=== PATIENT | female | born 1990 | race Caucasian/White ===

== ENCOUNTER 2019-11-20 07:52 | Emergency (ER) | payer OTHER, SELFPAY ==
[2019-11-20 07:56] VITALS: BP 142/78; PULSE 96; RESP 16; TEMP 36.8; O2SAT 98; BMI 34.0
--- NOTE | 2019-11-20 08:14 | DI.US.S_ITS ---
PROCEDURE: US PELVIC COMPLETE INDICATIONS: pain +preg TECHNIQUE: Real-time scanning was performed of the pelvic organs, with image documentation. Additional endovaginal scanning was necessary due to incomplete visualization of the adnexal and endometrial structures by transabdominal scanning. COMPARISON: None. FINDINGS: Transabdominal scanning: Limited scanning through the kidneys shows no hydronephrosis. A small amount of free fluid can be seen within the posterior pelvic cul-de-sac. Endovaginal scanning: Uterus: Uterus is normal in size at 8.1 x 4.5 x 5.3 cm. The endometrium measures 13 mm in combined thickness. Within the endometrial stripe, there is a small amount of free fluid seen, new without a gestational sac observed. Ovaries: The right ovary measures 2.4 x 1.4 x 1.3 cm. The left ovary measures 4.7 x 2.6 x 2.6 cm. The ovaries have a normal sonographic appearance, with a likely corpus luteum seen involving the left ovary that measures 3 centimeters. No adnexal masses are seen. IMPRESSION: An intrauterine is not confirmed. There is a small amount of fluid seen along the endometrial stripe. A small amount of free pelvic fluid is also seen. The differential diagnosis includes a spontaneous miscarriage in progress as well as (less likely) ectopic . Very early is also possible-please correlate with menstrual dating. Likely left ovarian corpus luteum. Close clinical followup, with serial beta-hCG and serial ultrasound are recommended, as clinically appropriate. Dictated by: Jam Armenta M.D. on 11/20/2019 at 8:57 Approved by: Jam Armenta M.D. on 11/20/2019 at 9:01
--- NOTE | 2019-11-20 08:18 | ED.FEMALEGU ---
HPI - Female Genitourinary General Chief complaint: Abdominal Pain Stated complaint: lower abd pain/+preg test x2days Time Seen by Provider: 11/20/19 08:06 Source: patient Mode of arrival: Ambulatory Limitations: no limitations History of Present Illness HPI Narrative: Patient is a 29-year-old female who presents with lower abdominal pain and cramping. She took a test at home and it is positive her last menstrual period was October 18. She has no vaginal bleeding. This was not a planned . She denies feeling nauseated or fall but it. No painful or frequent urination. His his pain all across her lower abdomen MD Complaint: pelvic pain Related Data Home Medications Medication Instructions Recorded Confirmed [NUVORING] #0 06/27/11 Previous Rx's Medication Instructions Recorded amoxicillin-pot clavulanate 875 mg PO BID #14 tab 06/29/16 [Augmentin] fluticasone propionate 0 INTRANASAL BID #16 gm 06/29/16 hydrocodone-acetaminophen [[place]] 1 tab PO Q6H PRN #6 tab 11/20/19 Allergies Allergy/AdvReac Type Severity Reaction Status Date / Time oxycodone [OXYCODONE] Allergy Unknown SKIN RASH Unverified 07/05/17 12:09 LATEX Allergy Intermediate RASH/ SOB Uncoded 07/05/17 12:09 Review of Systems Review of Systems Narrative: GENERAL: Denies chills, fatigue, malaise, fever, sweats, travel HEENT: Denies sinus pain, ear pain, sore throat, difficulty swallowing, neck pain RESPIRATORY: Denies dyspnea, cough, wheezing, hemoptysis, sputum. CARDIOVASCULAR: Denies chest pain, palpitations, orthopnea, edema GASTROINTESTINAL: See HPI Denies nausea, vomiting, abdominal pain, diarrhea, constipation, melena. : See HPI MUSCULOSKELETAL: Denies weakness, joint pain, or bony pain SKIN: No rash, no erythema, no pruritus NEUROLOGIC: Denies weakness, dizziness, headache, numbness, change in speech, confusion PSYCHIATRIC: No concerning psychosocial issues. 12 point review of systems is negative except for those stated above and HPI Patient History alcohol intake frequency: 0-2 drinks per day Substance Use Type: marijuana Exam Initial Vital Signs Initial Vital Signs: Vital Signs Temperature 98.2 F 11/20/19 07:56 Pulse Rate 96 H 11/20/19 07:56 Respiratory Rate 16 11/20/19 07:56 Blood Pressure 142/78 H 11/20/19 07:56 Pulse Oximetry 98 11/20/19 07:56 GENERAL: Well-appearing, well-nourished and in no acute distress. HEENT: Head atraumatic,EOMI, pupils reactive, face symmetric, moist mucous membranes CARDIOVASCULAR: Regular rate and rhythm without murmurs, rubs or gallops. RESPIRATORY: Breath sounds equal bilaterally, no wheezes rales or rhonchi. ABDOMEN: Soft, lower abdominal nontender. Normoactive bowel sounds all 4 quadrants. No guarding or rebound. PELVIC: External genitalia is normal, no vaginal bleeding, no vaginal discharge, no odor, cervical os is closed, no adnexal tenderness, she is tender midline EXTREMITIES: Normal range of motion, no clubbing or edema. Neurovascularly intact NEUROLOGICAL: Alert and oriented x4.Normal gait and speech. SKIN: Warm, dry, no laceration, no petechiae, no rashes or lesions. Course Orders Ordered: ED Orders 11/20/19 08:14 US pelvic complete Stat 11/20/19 08:30 Complete Blood Count AUTO DIFF Stat Comprehensive Metabolic Panel Stat HCG Quantitative /Beta subunit Stat Discontinued Medications Acetaminophen (Tylenol) 975 mg PO NOW ONE Stop: 11/20/19 08:15 Last Admin: 11/20/19 08:59 Dose: 975 mg Documented by: TREY Consultations Consultation #1: OB- Travis follow up in clinic in 2 days Time: 10:22 Vital Signs Vital signs: Vital Signs - 8 hr 11/20/19 07:56 11/20/19 10:33 Temperature 98.2 F Pulse Rate 96 H 83 Respiratory Rate 16 Blood Pressure 142/78 H 121/76 Pulse Oximetry 98 6 L MDM - Female Genitourinary Lab Data Attestation: I reviewed the patient's lab results. Result diagrams: 11/20/19 08:30 11/20/19 08:30 Labs: Lab Results 11/20/19 11/20/19 Range/Units 08:30 08:30 WBC 10.1 (4.5-11.0) X10^3/uL RBC 4.79 (4.0-5.2) X10^6/uL Hgb 12.0 (12.0-16.0) g/dL Hct 37.0 (36-46) % MCV 77.4 L (80-100) fL MCH 25.0 L (26-34) PG MCHC 32.3 (30-36) % RDW 15.6 H (11.6-14.8) % Plt Count 349 (150-400) X10^3/uL Neut % (Auto) 73.6 (50-75) % Lymph % (Auto) 19.9 L (25-40) % [place] % (Auto) 4.8 (3-14) % Eos % (Auto) 1.3 L (2-4) % Baso % (Auto) 0.4 (0-2) % Neut # (Auto) 7500 H (2066-3875) /uL Lymph # (Auto) 2000 (1450-1793) /uL [place] # (Auto) 500 (0-900) /uL Eos # (Auto) 100 (0-450) /uL Baso # (Auto) 0 (0-100) /uL Sodium 137 (137-145) mmol/L Potassium 4.1 (3.4-5.1) mmol/L Chloride 106 (98-107) mmol/L Carbon Dioxide 22 (22-32) mmol/L BUN 12 (7-17) mg/dL Creatinine 0.61 (0.52-1.04) mg/dL Estimated GFR > 60.0 (>60) mL/min BUN/Creatinine Ratio 19.7 (6-22) Glucose 115 H (70-100) mg/dL Calcium 9.3 (8.4-10.2) mg/dL Total Bilirubin 0.4 (0.2-1.3) mg/dL AST 23 (14-36) IU/L ALT 22 (<35) IU/L Alkaline Phosphatase 93 (38-126) U/L Total Protein 8.1 (6.3-8.2) g/dL Albumin 4.4 (3.5-5.0) g/dL Globulin 3.7 (1.7-4.1) g/dL Albumin/Globulin Ratio 1.2 (1.0-2.8) HCG, Quant 346.6 mIU/mL Point of Care Testing Test Results Positive Urine Dip Bedside Urine Glucose Negative Bedside Urine Bilirubin - Negative Bedside Urine Ketone - Negative Urine Specific [place] 1.015 Bedside Urine Occult Blood - Negative Bedside Urine pH 6.0 Bedside Urine Protein - Negative Bedside Urine Urobilinogen - Negative Bedside Urine Nitrite - Negative Bedside Urine Leukocytes - Negative Esterase Imaging Data US - OB: Radiologist's Impression: PROCEDURE: US PELVIC COMPLETE INDICATIONS: pain +preg TECHNIQUE: Real-time scanning was performed of the pelvic organs, with image documentation. Additional endovaginal scanning was necessary due to incomplete visualization of the adnexal and endometrial structures by transabdominal scanning. COMPARISON: None. FINDINGS: Transabdominal scanning: Limited scanning through the kidneys shows no hydronephrosis. A small amount of free fluid can be seen within the posterior pelvic cul-de-sac. Endovaginal scanning: Uterus: Uterus is normal in size at 8.1 x 4.5 x 5.3 cm. The endometrium measures 13 mm in combined thickness. Within the endometrial stripe, there is a small amount of free fluid seen, new without a gestational sac observed. Ovaries: The right ovary measures 2.4 x 1.4 x 1.3 cm. The left ovary measures 4.7 x 2.6 x 2.6 cm. The ovaries have a normal sonographic appearance, with a likely corpus luteum seen involving the left ovary that measures 3 centimeters. No adnexal masses are seen. IMPRESSION: An intrauterine is not confirmed. There is a small amount of fluid seen along the endometrial stripe. A small amount of free pelvic fluid is also seen. The differential diagnosis includes a spontaneous miscarriage in progress as well as (less likely) ectopic . Very early is also possible-please correlate with menstrual dating. Likely left ovarian corpus luteum. Close clinical followup, with serial beta-hCG and serial ultrasound are recommended, as clinically appropriate. Dictated by: Jam Armenta M.D. on 11/20/2019 at 8:57 Approved by: Jam Armenta M.D. on 11/20/2019 at 9:01 MDM Narrative Medical decision making narrative: I have suspicion that patient is experiencing miscarriage with extremely low HCG. IUP is not confirmed by ultrasound I have low suspicion for ectopic based on exam and hCG. Patient has no PCP and no OB. I have called OB cotton opener who recommends follow-up in clinic in 2 days. I discussed all findings with the patient and spouse, Education has been performed regarding treatment plan, diagnosis, warning signs and symptoms and all concerns have been addressed. Verbally agree with and understood all of the above. Discharge Plan Departure Patient Disposition: Home Clinical Impression: Miscarriage, threatened, early Discharge Date/Time: 11/20/19 10:34 Instructions: Threatened Miscarriage Activity Restrictions/Additional Instructions: RQI=162.6 *You have been diagnosed with threatened miscarriage *What to do: It is highly suspected that you may be experiencing a miscarriage however ED needs have your blood rechecked in 2 days. *Continue to take medications as directed [place] 1 tab every 6 hours if needed for severe pain Tylenol 650 mg every 4-6 hours if needed for ojex-is-[id number] pain *Follow up with your primary care provider in 2, call office today to schedule follow-up appointment let them know you were seen in the ED *Return to ER if you should have increased vaginal bleeding, severe pain or any new, worsening or concerning symptoms CONTROLLED SUBSTANCE DISCHARGE (Narcotoic/benzodiazepine/Flexeril/Phenergan) 1. You have been prescribed narcotic medications, it does have acetaminophen/Tylenol/paracetamol in it so do not take extra Tylenol or Tylenol containing products TRAMADOL DOES NOT CONTAIN TYLENOL 2. Please understand that we cannot provide further refills of narcotics, benzodiazepines or controlled substances through the ED and her pain management will need to be through your provider. 3. While on these medications you cannot drive or operate heavy machinery. 4. You cannot sign legal documents or perform any duties such as this. 5. As long as you're taking opiate pain medications he should also be taking a stool softener such as Colace, Dulcolax, MiraLAX or prune juice, to help avoid constipation. Prescriptions: New hydrocodone-acetaminophen [[place]] 5-325 mg tablet 1 tab PO Q6H PRN (Reason: pain) Qty: 6 RF: 0 No Action [NUVORING] Qty: 0 RF: 0 fluticasone propionate 16 GM spray,suspension 0 Intranasal BID Qty: 16 RF: 0 amoxicillin-pot clavulanate [Augmentin] 875 MG/125 MG tablet 875 mg PO BID Qty: 14 RF: 0 Referrals: Ashwini Robles CNM [[facility] [employer] [facility]] -
[2019-11-20 08:45] LABS: Add Manual Diff / Slide Review NO; Basophils Absolute Auto 0 /uL (0-100); Basophils Percent Auto 0.4 % (0-2); Eosinophils Absolute Auto 100 /uL (0-450); Eosinophils Percent Auto 1.3 % (2-4); Lymphocytes Absolute Auto 2000 /uL (1100-4500); Lymphocytes Percent Auto 19.9 % (25-40); Mean Corpuscular HGB Conc 32.3 % (30-36); Mean Corpuscular Volume 77.4 fL (80-100); Monocytes Absolute Auto 500 /uL (0-900); Monocytes Percent Auto 4.8 % (3-14); Neutrophils Absolute Auto 7500 /uL (1500-7000); Neutrophils Percent Auto 73.6 % (50-75); Platelet Count 349 X10^3/uL (150-400); Red Blood Cell Count 4.79 X10^6/uL (4.0-5.2); Red Cell Distribution Width 15.6 % (11.6-14.8); White Blood Cell Count 10.1 X10^3/uL (4.5-11.0)
[2019-11-20 08:56] LABS: Alanine Aminotransferase 22 IU/L (<35); Albumin 4.4 g/dL (3.5-5.0); Albumin Globulin Ratio 1.2 (1.0-2.8); Alkaline Phosphatase 93 U/L (38-126); Aspartate Aminotransferase 23 IU/L (14-36); BUN Creatinine Ratio 19.7 (6-22); Bilirubin Total 0.4 mg/dL (0.2-1.3); Blood Urea Nitrogen 12 mg/dL (7-17); Calcium 9.3 mg/dL (8.4-10.2); Carbon Dioxide 22 mmol/L (22-32); Chloride 106 mmol/L (98-107); Estimated Glomerular Filt Rate > 60.0 mL/min (>60); Globulin 3.7 g/dL (1.7-4.1); Glucose 115 mg/dL (70-100); HEMOLYSIS < 15 (0-50); Potassium 4.1 mmol/L (3.4-5.1); Sodium 137 mmol/L (137-145); Total Protein 8.1 g/dL (6.3-8.2)
[2019-11-20] MEDS: ACETAMINOPHEN 325 MG TABLET 975 MG PO (08:59)
[2019-11-20 09:11] LABS: HCG Quantitative /Beta subunit 346.6 mIU/mL
[2019-11-20 10:33] VITALS: BP 121/76; PULSE 83; O2SAT 6
== END 2019-11-20 10:34 | disposition home or self-care (01) ==
PROVIDERS: Emergency Provider Emergency Medicine
DX: O20.0 Threatened abortion (principal)
CPT/HCPCS: 76856; 80053; 81003; 81025; 84702; 85025; 99284

== ENCOUNTER → 2019-11-22 10:45 | Outpatient (CLI) | payer OTHER, SELFPAY ==
[2019-11-22 12:46] LABS: HCG Quantitative /Beta subunit 1035.5 mIU/mL
== END ==
PROVIDERS: Referring Provider Specialist; Visit Provider Specialist
DX: O20.0 Threatened abortion (principal); O26.899 Other specified pregnancy related conditions, unspecified trimester; R10.9 Unspecified abdominal pain
CPT/HCPCS: 36415; 84702

== ENCOUNTER → 2019-12-12 15:16 | Outpatient (CLI) | payer OTHER, SELFPAY ==
[2019-12-12 16:11] LABS: Add Manual Diff / Slide Review NO; Basophils Absolute Auto 0 /uL (0-100); Basophils Percent Auto 0.3 % (0-2); Eosinophils Absolute Auto 100 /uL (0-450); Eosinophils Percent Auto 0.8 % (2-4); Hematocrit 33.6 % (36-46); Hemoglobin 10.8 g/dL (12.0-16.0); Lymphocytes Absolute Auto 2900 /uL (1100-4500); Lymphocytes Percent Auto 20.2 % (25-40); Mean Corpuscular HGB Conc 32.2 % (30-36); Mean Corpuscular Hemoglobin 24.8 PG (26-34); Mean Corpuscular Volume 77.2 fL (80-100); Monocytes Absolute Auto 900 /uL (0-900); Neutrophils Absolute Auto 10300 /uL (1500-7000); Neutrophils Percent Auto 72.7 % (50-75); Platelet Count 339 X10^3/uL (150-400); Red Blood Cell Count 4.35 X10^6/uL (4.0-5.2); Red Cell Distribution Width 16.3 % (11.6-14.8); White Blood Cell Count 14.1 X10^3/uL (4.5-11.0)
[2019-12-12 16:26] LABS: Appearance Urine UA CLEAR; Bilirubin Urine UA NEGATIVE (NEGATIVE); Color Urine UA YELLOW; Glucose Urine UA NEGATIVE (Negative); Ketones Urine UA NEGATIVE (NEGATIVE); Leukocyte Esterase Urine UA NEGATIVE (NEGATIVE); Nitrite Urine UA NEGATIVE (Negative); Occult Blood Urine UA TRACE-LYSED (Negative); Protein Urine UA NEGATIVE (Negative); Urobilinogen Urine UA 0.2 E.U./dL (0.2)
[2019-12-12 17:40] LABS: Hepatitis B Surface Antigen NEGATIVE s/c (NEGATIVE); Rubella Antibody IgG 19.9 IU/mL (>15)
[2019-12-12 17:57] LABS: HIV 1 & 2 Ab/Ag 4th Gen Combo NEGATIVE (NEGATIVE); Hep C Virus Ab w/Reflex Quant NEGATIVE s/c (NEGATIVE)
[2019-12-13 05:11] LABS: RPR Screen Non Reactive (Non Reactive)
[2019-12-13 08:54] LABS: Varicella IgG Antibody 1591 index (Immune >165)
== END ==
PROVIDERS: PCP Specialist; Referring Provider Specialist; Visit Provider Specialist
DX: Z34.01 Encounter for supervision of normal first pregnancy, first trimester (principal)
CPT/HCPCS: 36415; 80055; 81003; 86787; 86803; 86850; 86900; 86901; 87086; 87389

== ENCOUNTER → 2020-01-10 14:54 | Outpatient (CLI) | payer OTHER, SELFPAY ==
[2020-01-10 16:47] LABS: Iron 38 ug/dL (37-170)
[2020-01-10 16:58] LABS: Percent Iron Saturation 8 % (15-50); Total Iron Binding Capacity 503 ug/dL (265-497)
[2020-01-10 17:23] LABS: Ferritin 17 ng/mL (6-137)
== END ==
PROVIDERS: PCP Specialist; Referring Provider Specialist; Visit Provider Specialist
DX: D50.9 Iron deficiency anemia, unspecified (principal)
CPT/HCPCS: 36415; 82728; 83540; 83550

== ENCOUNTER → 2020-02-14 17:20 | Outpatient (CLI) | payer OTHER, SELFPAY ==
[2020-02-17 19:36] LABS: AFP, Serum 35.1 ng/mL (.); Estriol, Free 0.84 ng/mL (.); Inhibin A, Dimeric 148.81 pg/mL (.); Inhibin A, MoM 1.06 (.); Maternal Ethnicity Caucasian (.); Maternal Weight 191 lbs (.); Number of Fetuses No (.); OSBR Risk 1 IN 9231 (.); Results Report (.); Test Results *Screen Negative* (.); hCG, MoM 0.69 (.); hCG, Serum 19803 mIU/mL (.)
== END ==
PROVIDERS: PCP Registered Nurse; Referring Provider Specialist; Visit Provider Specialist
DX: Z34.02 Encounter for supervision of normal first pregnancy, second trimester (principal); Z3A.16 16 weeks gestation of pregnancy
CPT/HCPCS: 36415; 82105; 82677; 84702; 86336

== ENCOUNTER → 2020-03-11 12:10 | Outpatient (CLI) | payer OTHER, SELFPAY ==
--- NOTE | 2020-03-11 12:11 | DI.US.S_ITS ---
PROCEDURE: US OB >= 14 WEEKS FETUS INDICATIONS: 20wk Anatomy Survey OUTSIDE/PRIOR DATING DATA: First dating scan (date and location): 12/12/2019 . Estimated date of delivery (KVNG) from first dating scan: 07/25/2020 . TECHNIQUE: Real-time scanning was performed of the fetus, with image documentation and biometric measurements. Endovaginal scanning: No COMPARISON: [facility], , OB >= 14 WEEKS FETUS, 02/14/2020, 17:13. FINDINGS: General: A single living intrauterine gestation is present. Presentation: Vertex. Placenta: Placental position is anterior , without previa. Amniotic fluid index: 17.4 cm, normal range is 5-24 cm. heart rate: 141 beats per minute. Maternal cervical canal: 3.7 cm long. Normal lower limit is 2.5 cm. biometrics: Biparietal diameter: 21 weeks Head circumference: 20 weeks 2 days Abdominal circumference: 22 weeks 4 days Femur length: 21 weeks 3 days Estimated gestational age from initial scan: 20 weeks 4 days Composite gestational age from present scan: 21 weeks 2 days Estimated weight and percentile: 450 g; 97th percentile Measurement variability for biometric dating: +/- 7 days from 14 weeks to 15 weeks 6 days gestation, +/- 10 days from 16 weeks to 21 weeks 6 days gestation, +/- 2 weeks from 22 weeks to 27 weeks 6 days gestation, +/- 3 weeks for 28 weeks gestation or later. weight reference: 4500 g or EFW >90/95% is considered macrosomia or large for gestational age. EFW <10% is small for gestational age. EFW 5% or less is considered intra-uterine growth restriction. Anatomic survey: Neuro: Ventricles are non-dilated at less than 10 mm. Cisterna magna is normal at 3-11 mm. Cerebellum is normal in size and morphology. Nuchal skin fold: Normal at less than 6 mm between 14-21 weeks gestational age. Face: Nose and lips, facial profile are normal. Spine: No evidence for spina bifida. Heart: 4-chambered heart is present, with normal ventricular outflow tracts. Diaphragm: Diaphragm is intact. Stomach: Left-sided stomach is present. Kidneys: No hydronephrosis. Normal is less than 5 mm in 2nd trimester, less than 7 mm in 3rd trimester. Cord: 3-vessel cord has orthotopic insertion. Bladder: Normal in size. Extremities: All 4 extremities identified. IMPRESSION: 1. Interval growth greater than expected with estimated weight 97th percentile. Follow-up recommended. 2. Normal anatomic survey. Dictated by: Dave Alcala [facility] Interpreted: Dewey Mcgraw MD on 03/12/2020 at 17:02 Approved by: Dewey Mcgraw M.D. on 03/12/2020 at 17:19
== END ==
PROVIDERS: PCP Registered Nurse; Referring Provider Specialist; Visit Provider Specialist
DX: Z36.89 Encounter for other specified antenatal screening (principal); Z3A.21 21 weeks gestation of pregnancy
CPT/HCPCS: 76811

== ENCOUNTER → 2020-04-02 12:02 | Outpatient (CLI) | payer OTHER, SELFPAY ==
[2020-04-02 14:34] LABS: Hemoglobin 10.3 g/dL (12.0-16.0)
[2020-04-02 14:48] LABS: GTT (PREG) 1 Hour PP 50gm Dose 178 mg/dL (76-139)
== END ==
PROVIDERS: PCP Registered Nurse; Referring Provider Specialist; Visit Provider Specialist
DX: Z34.02 Encounter for supervision of normal first pregnancy, second trimester (principal); Z33.1 Pregnant state, incidental
CPT/HCPCS: 36415; 82950; 85014; 85018

== ENCOUNTER → 2020-04-15 07:51 | Outpatient (CLI) | payer OTHER, SELFPAY ==
[2020-04-15 09:39] LABS: Glucose Fasting Gestational 90 mg/dL (76-95)
[2020-04-15 10:34] LABS: Glucose 1 Hour Gest 185 mg/dL (76-180)
[2020-04-15 11:09] LABS: Glucose Tol Interp,Gestational INTERPRETATION
[2020-04-15 11:16] LABS: Glucose 2 Hour Gest 194 mg/dL (76-155)
[2020-04-15 11:44] LABS: Glucose 3 Hour Gest 147 mg/dL (76-140)
== END ==
PROVIDERS: PCP Registered Nurse; Referring Provider Specialist; Visit Provider Specialist
DX: O99.810 Abnormal glucose complicating pregnancy (principal)
CPT/HCPCS: 36415; 82951; 82952

== ENCOUNTER → 2020-05-07 11:30 | Oncology outpatient (ONC) | payer OTHER, SELFPAY ==
[2020-02-12] MEDS: IRON SUCROSE 100 MG in SODIUM CHLORIDE 0.9% 100 ML 210 ML IV (10:47)
[2020-02-12 11:14] VITALS: BP 117/68; PULSE 75; RESP 16; TEMP 37.1; O2SAT 98
[2020-02-17 14:49] VITALS: BP 128/65; PULSE 88; RESP 16; TEMP 37.3; O2SAT 96
[2020-02-17] MEDS: IRON SUCROSE 200 MG in SODIUM CHLORIDE 0.9% 100 ML 220 ML IV (14:50)
[2020-02-24 15:01] VITALS: BP 118/63; PULSE 78; RESP 16; TEMP 37.2; O2SAT 96
[2020-02-24] MEDS: IRON SUCROSE 200 MG in SODIUM CHLORIDE 0.9% 100 ML 220 ML IV (15:02)
[2020-04-30 11:46] VITALS: BP 128/77; PULSE 86; RESP 18; TEMP 37; O2SAT 100
[2020-04-30] MEDS: IRON SUCROSE 100 MG in SODIUM CHLORIDE 0.9% 100 ML 210 ML IV (11:54)
[2020-05-05] MEDS: IRON SUCROSE 200 MG in SODIUM CHLORIDE 0.9% 100 ML 220 ML IV (11:44)
[2020-05-05 12:12] VITALS: BP 136/74; PULSE 83; RESP 18; TEMP 36.5; O2SAT 98
[2020-05-07] MEDS: IRON SUCROSE 200 MG in SODIUM CHLORIDE 0.9% 100 ML 220 ML IV (11:57)
== END ==
PROVIDERS: PCP Specialist; Referring Provider Specialist; Visit Provider Specialist
DX: O99.012 Anemia complicating pregnancy, second trimester (principal); D64.9 Anemia, unspecified; Z3A.27 27 weeks gestation of pregnancy
CPT/HCPCS: 36591; 96365; J1756

== ENCOUNTER → 2020-06-25 15:16 | Outpatient (CLI) | payer OTHER, SELFPAY ==
[2020-06-26 12:22] LABS: Strep Grp B PCR NEG for Grp B Strep
== END ==
PROVIDERS: PCP Registered Nurse; Visit Provider Specialist
DX: Z34.03 Encounter for supervision of normal first pregnancy, third trimester (principal); Z3A.35 35 weeks gestation of pregnancy
CPT/HCPCS: 87653

== ENCOUNTER 2020-07-20 19:30 | Observation (INO) | payer OTHER, SELFPAY ==
[2020-07-20] MEDS: miSOPROStoL 25 MCG TABLET VAG (21:00)
[2020-07-20] MEDS: ZOLPIDEM 5 MG TABLET PO (22:49)
[2020-07-20 23:09] LABS: Add Manual Diff / Slide Review NO; Basophils Absolute Auto 0 /uL (0-100); Basophils Percent Auto 0.2 % (0-2); Eosinophils Absolute Auto 100 /uL (0-450); Eosinophils Percent Auto 0.7 % (2-4); Hematocrit 35.7 % (36-46); Lymphocytes Absolute Auto 2800 /uL (1100-4500); Lymphocytes Percent Auto 24.2 % (25-40); Mean Corpuscular HGB Conc 33.5 % (30-36); Mean Corpuscular Volume 83.5 fL (80-100); Monocytes Absolute Auto 600 /uL (0-900); Monocytes Percent Auto 5.3 % (3-14); Neutrophils Absolute Auto 8100 /uL (1500-7000); Neutrophils Percent Auto 69.6 % (50-75); Platelet Count 247 X10^3/uL (150-400); Red Blood Cell Count 4.28 X10^6/uL (4.0-5.2); Red Cell Distribution Width 15.9 % (11.6-14.8); White Blood Cell Count 11.7 X10^3/uL (4.5-11.0)
[2020-07-21] MEDS: miSOPROStoL 25 MCG TABLET VAG (01:07)
[2020-07-21 01:32] LABS: COVID19 -Nasal RAPID Negative (Negative)
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
--- NOTE | 2020-07-21 08:18 | P.DS_ITS ---
Discharge Providers Provider Date of admission: 07/20/20 19:30 Discharge Date: 07/21/20 Primary care physician: HENRY Hoskins Consults: 07/20/20 22:53 Consult to Anesthesiology Urgent Comment: Consulting Provider: Anesthesiologist Reason for consultation: Epidural Has provider been notified: No Discharge provider: Melia Phan MD Summary Hospital Course Date Patient Seen: 07/21/20 Time Patient Seen: 08:18 Diagnoses: 39 week gestation with gestational diabetes diet controlled admitted for induction. Hospital Course: Patient received 2 doses of Cytotec. Due to limitations of nursing and space patient will be discharged home to return for Pitocin when unit is able to help. Discharge Diagnosis (1) Gestational diabetes mellitus (GDM): Status: Acute Problem Details: Diet-controlled (2) 39 weeks gestation of : Status: Acute Status at Discharge Cognitive/behavioral status at discharge: oriented Functional status at discharge: independent ambulation Overall status at discharge: patient is back to baseline Time Spent with Patient Time attestation: Total time spent providing and/or coordinating discharge services: Time spent: Less than 30 minutes Objective Labs Result Diagrams: 07/20/20 20:30 Labs: Laboratory Results - last 24 hr 07/20/20 07/20/20 07/20/20 19:50 20:30 20:30 WBC 11.7 H RBC 4.28 Hgb 12.0 Hct 35.7 L MCV 83.5 MCH 28.0 MCHC 33.5 RDW 15.9 H Plt Count 247 Neut % (Auto) 69.6 Lymph % (Auto) 24.2 L [place] % (Auto) 5.3 Eos % (Auto) 0.7 L Baso % (Auto) 0.2 Neut # (Auto) 8100 H Lymph # (Auto) 2800 [place] # (Auto) 600 Eos # (Auto) 100 Baso # (Auto) 0 SARS-CoV-2 (PCR) Negative Blood Type O Positive Antibody Screen Negative Exam Vital Signs (past 8 hours): Blood pressure 150/92, pulse of 81, temperature 36.1? Narrative Exam Narrative: Reactive nonstress test. Cervix is 1-2, 75% effaced, -1 statio n. Discharge Plan Discharge Plan Patient Disposition: Home Discharge orders & Medications Prescriptions: Continued (DME) blood-glucose meter [Blood Glucose Monitoring] Kit See Rx Instructions .ROUTE .MEDSUPPLY Qty: 1 RF: 0 (DME) lancets [Comfort Lancets] Misc See Rx Instructions .ROUTE .MEDSUPPLY Qty: 100 RF: 4 (DME) Blood Glucose Test Strip See Rx Instructions .ROUTE .MEDSUPPLY Qty: 100 RF: 4 prenat.vits,nuzhat,onr-yspk-gftjl Tablet 1 tab PO DAILY RF: 0 Follow up/Referrals: Casandra Sanchez ARNP [Primary Care Provider] - Diet/Activity/Treatments Diet: Regular Activity: no restrictions Discharge Data Primary Care Provider: Casandra Sanchez Attending Provider: Melia Phan
== END 2020-07-21 08:00 | disposition home or self-care (01) ==
PROVIDERS: Admitting Provider Specialist; PCP Registered Nurse; Referring Provider Specialist; Visit Provider Specialist
DX: O24.410 Gestational diabetes mellitus in pregnancy, diet controlled (principal); Z3A.39 39 weeks gestation of pregnancy
CPT/HCPCS: 59025; 59050; 59200; 85025; 86850; 86900; 86901; 87635; C9803; G0378; G0379

== ENCOUNTER 2020-07-23 07:08 | Inpatient (IN) | payer OTHER, SELFPAY ==
[2020-07-23] VITALS (7 sets, daily range): BP systolic 126–153; BP diastolic 62–79; PULSE 68–86; RESP 11–17; TEMP 37.9; O2SAT 95–99
--- NOTE | 2020-07-23 | PATH_ITS ---
[facility] Accession Number: [id number] . 01 Material submitted: . ovary - LEFT OVARIAN BIOPSY . 02 Diagnosis: Left Ovarian Biopsy (Weight 2 grams): Small portion of ovarian cortical tissue with adherent decidualized stroma and endometrial glands, consistent with involvement by endometrosis. Negative for malignancy. [facility] 07/30/2020 1706 Local . 02 Comment: As part of ongoing quality assurance analyst, this case is also reviewed by Dr. Ga Loredo, who concurs with the given interpretation. . 02 Electronically signed: . Thereas Connolly MD, Pathologist NPI- [id number] . 01 Gross description: . The specimen is received in formalin, labeled left ovarian biopsy, and consists of a 2 g, 2.2 x 2.0 x 1.0 cm, morgan-pink to red-brown, lobulated cystic fragment of soft tissue. The margin is inked blue. The specimen is sectioned to reveal morgan-white, fibrotic cut surfaces. The specimen is entirely submitted in cassettes A1-A2. ([id number]) /[facility] 07/25/2020 1527 Local . 02 Microscopic: . A CD10 immunostain was performed on block A1, and is positive in region of interest. . The presence of immunostaining in the decidualized stromal tissue supports the presence of endometriosis at this site. The control stain showed appropriate reactivity. . * This test was developed and its performance characteristics determined by [employer] It has not been cleared or approved by the U.S. Food and Drug Administration. The FDA has determined that such clearance or approval is not necessary. This test is used for clinical purposes. It should not be regarded as investigational or for research. . 02 Pathologist provided ICD-10: N80.9 . 02 CPT . 941362 Performed at: 01 [facility] [address] [place] [address], [place], [place] [id number] MD Isauro Patel MD Phone: [phone] Performed at: 02 [facility] [place] [address] [address] [place], [place] [id number] MD Erika Davis MD Phone: [phone]
[2020-07-23] MEDS: OXYTOCIN PREMIX 30 UNIT/500 ML PLAST..BAG IV (08:08)
[2020-07-23] MEDS: LACTATED RINGERS 1,000 ML 100 ML IV ×2 (08:08→20:37)
[2020-07-23 09:46] LABS: Add Manual Diff / Slide Review NO; Basophils Absolute Auto 0 /uL (0-100); Basophils Percent Auto 0.2 % (0-2); Eosinophils Absolute Auto 100 /uL (0-450); Eosinophils Percent Auto 0.5 % (2-4); Hemoglobin 12.5 g/dL (12.0-16.0); Lymphocytes Absolute Auto 2300 /uL (1100-4500); Lymphocytes Percent Auto 21.8 % (25-40); Mean Corpuscular HGB Conc 32.9 % (30-36); Mean Corpuscular Hemoglobin 27.4 PG (26-34); Mean Corpuscular Volume 83.1 fL (80-100); Monocytes Absolute Auto 600 /uL (0-900); Monocytes Percent Auto 5.6 % (3-14); Neutrophils Absolute Auto 7600 /uL (1500-7000); Neutrophils Percent Auto 71.9 % (50-75); Platelet Count 258 X10^3/uL (150-400); Red Blood Cell Count 4.58 X10^6/uL (4.0-5.2); Red Cell Distribution Width 16.3 % (11.6-14.8); White Blood Cell Count 10.5 X10^3/uL (4.5-11.0)
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
--- NOTE | 2020-07-23 16:57 | PM.OBPNLAB ---
Date/Time Date Patient Seen: 07/23/20 Time Patient Seen: 16:57 Pain Control Pain control: epidural Pelvic Exam Dilation (cm): 7 Effacement (%): 80 station: 0 Amniotic membrane status: Ruptured Contractions Contractions on admission: regular Monitor mode: External Contraction frequency (min): 5 Contraction duration (min): 1 Contraction pattern: Regular Contraction intensity: Moderate Status status: Category ll Monitor Accelerations: Present Monitor Variability: Moderate Comments: Patient with several deep variable decelerations. Pitocin turned off, IV fluid bolus given, position change and the heart tones have improved significantly. There is moderate amount of vaginal bleeding hopefully due to quick cervical dilation but will be monitored for abruption Assessment and Plan Assessment: active labor Plan: continuous present management
--- NOTE | 2020-07-23 20:08 | PM.OBPNLAB ---
Date/Time Date Patient Seen: 07/23/20 Time Patient Seen: 20:08 Pain Control Pain control: epidural Pelvic Exam Dilation (cm): 8 Effacement (%): 90 station: 0 Amniotic membrane status: Ruptured Contractions Contractions on admission: regular Monitor mode: Internal Pitocin rate (mU/min): 3 Contraction frequency (min): 4 Contraction duration (min): 1 Contraction pattern: Regular Contraction intensity: Moderate Intrauterine tone measurement: 50 Status status: Category ll Heart Rate Baseline: 125 Monitor Accelerations: Present Monitor Decelerations: Prolonged Monitor Variability: Moderate Assessment and Plan Assessment: active labor Comments: Internal monitoring performed for prolonged decrease in baseline with variable decelerations. Patient progressing. OP position
[2020-07-23] MEDS: FENT 2MCG/ML BUPIV 0.125% EPI 200 MCG/100 ML PLAST..BAG 8 MCG EPIDURAL (20:36)
--- NOTE | 2020-07-23 21:53 | PM.PREOP ---
Pre-operative Note COVID-19 COVID-19 status: Negative Result date/Date tested (Pos, Neg/Pending): 07/20/20 Interval Note History & Physical reviewed/Exam performed by Physician: Yes Changes to H&P: Yes H&P completed within 30 days and has changed as indicated here:: intolerance of labor
--- NOTE | 2020-07-23 21:54 | P.PNOB_ITS ---
Date/Time Date Patient Seen: 07/23/20 Time Patient Seen: 21:54 Pain Control Pain control: epidural Pelvic Exam Dilation (cm): 9 Effacement (%): 90 station: 0 Amniotic membrane status: Ruptured Contractions Contractions on admission: regular Monitor mode: Internal Contraction frequency (min): 4 Contraction duration (min): 1 Contraction pattern: Regular Contraction intensity: Moderate Intrauterine tone measurement: 50 Status status: Category ll Heart Rate Baseline: 130 Monitor Accelerations: Present Monitor Decelerations: Prolonged and Recurrent Monitor Variability: Moderate Comments: Fetus is not tolerating labor. The cervix has not completely dilated. Decision was made to proceed with section. section consent f orm was reviewed with the patient. Risk of damage to bladder, bowel, ureters that could result in additional surgery to repair. Risk of infection. Risk of bleeding enough to require blood transfusion. Reaction to medication or anesthesia. Consent form was signed and questions answered. Assessment and Plan Plan:
[2020-07-23] MEDS: CEFAZOLIN 2 GM/100 ML FROZ.PIGGY IV (22:10)
--- NOTE | 2020-07-23 22:35 | SUR.OPER ---
Supine on Padded OR bed, head on pillow, safety belt at thigh, arms secured on padded arm boards at <90 degrees abduction. Bump under right buttock. Legs uncrossed with pillow under knees, gel pad to heels, tape over blanket to lower legs.
--- NOTE | 2020-07-23 22:44 | SUR.OPER ---
FHT 144
--- NOTE | 2020-07-23 22:44 | SUR.OPER ---
live male born at 2223
[2020-07-23] MEDS: KETOROLAC 30 MG/ML VIAL IV (23:00)
--- NOTE | 2020-07-23 23:24 | P.OP_ITS ---
Operative Date/Time/Diagnoses Date of procedure: 07/23/20 Time of procedure: 23:24 Pre-op diagnosis: intolerance of labor Post-op diagnosis: same Procedure & Clinicians Procedure: Primary low-transverse section Same procedure as scheduled: Yes Indications: intolerance of labor Surgeon: Melia Phan Click Yes if Unassisted: Yes Anesthesia Type: Epidural Operative Notes Findings: Normal tubes and uterus. Left ovary had a hard white spot with 2 cm multi septated vascular mass that was removed and sent to pathology. Viable male weighing 8 lb 3 oz with Apgars of 9 and 9 Closure Type: primary Specimen(s): cord blood Intraoperative meds administered: Pitocin Applied: Catheter (Guy) Estimated Blood Loss (mL): 600 Complications: none [place] Baby 1: Infant Gender: Male Presentation: vertex Position: Left Occiput Posterior Placental Delivery Description: Expressed Cord Vessel Description: 3 Vessels score (1 min): 9 score (5 min): 9 weight: 8 lb 3 oz Narrative: The patient was brought to the operating room where she underwent injection of her epidural for anesthesia. She was placed in a supine position with a left lateral tilt. A Guy catheter was in place. Pulsatile stockings were placed and functional throughout the case. 2 g of Ancef were given IV prior to the incision. Warming was in place. The patient was prepped and draped in usual sterile fashion. A low transverse incision was made with a scalpel and the incision was carried down to the fascial layer which was incised transversely with scissors. The midline attachments are superiorly and inferiorly. Some bleeding was controlled Bovie. The rectus muscles were in the midline and the peritoneal incision was made with no damage to internal structures. The peritoneum was incised and superiorly and inferiorly. The incision was stretched with the surgeon and assistant press operator offset placing traction. Bladder blade was placed and a bladder flap was developed and the bladder held away from the lower uterine segment. An incision was made in the uterus with the scalpel and the incision was extended with stretching. The head was elevated out of the abdomen and with fundal pressure by the assistant press operator offset the baby was delivered. The was bulb suctioned for clear fluid and handed off to the warmer. Cord blood was collected. The placenta delivered spontaneously with traction. The uterus was cleaned with clean laps. The uterine incision was closed in 2 layers of 0 chromic suture the first a running locking layer the second an imbricating layer. The assistant press operator offset was helping to expose the incision. The bladder peritoneum was repaired with 2-0 Vicryl suture. The gutters were cleaned of any remaining fluids and tubes were observed to be normal. The left ovary had an unusual mass that was removed with cautery to send to pathology. Adequate hemostasis was noted. The perineum was closed with 2-0 Vicryl suture. The fascia layer was closed with 0 Vicryl suture with 2 stitches. The assistant press operator offset repairing half the incision with helping to retract and expose the incision for the other half. The incision was irrigated and adequate hemostasis noted. The incision was closed with interrupted 3-0 Vicryl sutures and then a subcuticular stitch of 4-0 Vicryl suture. Steri-Strips were placed. The uterus was massaged to remove any clots. The patient went to recovery room in good condition. Counts of instruments and sponges were correct. Post-operative Condition: stable Disposition: other ( Center) Aftercare: routine postop
[2020-07-23] MEDS: HYDROCODONE/ACET 5/325 TABLET 1 TAB PO (23:41)
[2020-07-24] MEDS: LACTATED RINGERS 1,000 ML 100 ML IV
[2020-07-24] MEDS: diphenhydrAMINE 50 MG/ML VIAL (03:15)
[2020-07-24] MEDS: HYDROCODONE/ACET 5/325 TABLET 2 TAB PO ×5 (06:11→23:52)
[2020-07-24] MEDS: KETOROLAC 30 MG/ML VIAL IV ×3 (06:12→17:55)
[2020-07-24 09:22] LABS: Add Manual Diff / Slide Review NO; Basophils Absolute Auto 0 /uL (0-100); Basophils Percent Auto 0.2 % (0-2); Eosinophils Absolute Auto 0 /uL (0-450); Eosinophils Percent Auto 0.2 % (2-4); Hemoglobin 10.3 g/dL (12.0-16.0); Lymphocytes Absolute Auto 2600 /uL (1100-4500); Lymphocytes Percent Auto 18.3 % (25-40); Mean Corpuscular HGB Conc 32.1 % (30-36); Mean Corpuscular Volume 84.2 fL (80-100); Monocytes Absolute Auto 700 /uL (0-900); Neutrophils Absolute Auto 11000 /uL (1500-7000); Neutrophils Percent Auto 76.3 % (50-75); Platelet Count 198 X10^3/uL (150-400); Red Blood Cell Count 3.81 X10^6/uL (4.0-5.2); Red Cell Distribution Width 16.3 % (11.6-14.8); White Blood Cell Count 14.4 X10^3/uL (4.5-11.0)
[2020-07-24] MEDS: DOCUSATE 250 MG CAPSULE PO (09:32)
--- NOTE | 2020-07-24 11:03 | P.PNOB_ITS ---
Subjective - OB Subjective Patient comments: incisional pain baby status: nursing well [place] feeding status: exclusively breast feeding Date Patient Seen: 07/24/20 Time Patient Seen: 11:03 Exam Vital Signs (past 8 hours): Blood pressure 138/79, pulse 69, temperature 98? Oxygen Delivery Method Room Air Narrative Exam Narrative: Abdomen is soft, nontender. Uterus is firm, at U 2, appropriately tender. Dressing is clean, dry, intact. Mild lochia. E xtremities without edema and nontender. Objective Labs Result Diagrams: 07/24/20 06:24 Labs: Laboratory Results - last 24 hr 07/24/20 06:24 WBC 14.4 H RBC 3.81 L Hgb 10.3 L Hct 32.0 L MCV 84.2 MCH 27.0 MCHC 32.1 RDW 16.3 H Plt Count 198 Neut % (Auto) 76.3 H Lymph % (Auto) 18.3 L [place] % (Auto) 5.0 Eos % (Auto) 0.2 L Baso % (Auto) 0.2 Neut # (Auto) 06187 H Lymph # (Auto) 2600 [place] # (Auto) 700 Eos # (Auto) 0 Baso # (Auto) 0 Assessment & Plan Assessment and Plan (1) Delivery by section: Status: Acute Plan day: 1 plan OB: routine postop care Time Spent With Patient Time: Total time spent is greater than 50% in coordination of care (as documented) at patient's floor/unit and/or counseling patient: Time with patient: less than 15 minutes
--- NOTE | 2020-07-24 17:51 | PM.OBPN.1 ---
Subjective - OB Subjective Patient comments: incisional pain baby status: doing well and nursing well feeding status: exclusively breast feeding Date Patient Seen: 07/24/20 Time Patient Seen: 17:51 Interval history: Patient is doing better. She has been up and urinated post removal of her Guy catheter. No nausea. Exam Vital Signs (past 8 hours): Oxygen Delivery Method Room Air Objective Labs Result Diagrams: 07/24/20 06:24 Labs: Laboratory Results - last 24 hr 07/24/20 06:24 WBC 14.4 H RBC 3.81 L Hgb 10.3 L Hct 32.0 L MCV 84.2 MCH 27.0 MCHC 32.1 RDW 16.3 H Plt Count 198 Neut % (Auto) 76.3 H Lymph % (Auto) 18.3 L [place] % (Auto) 5.0 Eos % (Auto) 0.2 L Baso % (Auto) 0.2 Neut # (Auto) 75428 H Lymph # (Auto) 2600 [place] # (Auto) 700 Eos # (Auto) 0 Baso # (Auto) 0 Assessment & Plan Assessment and Plan (1) Delivery by section: Status: Acute Plan day: 1 plan OB: routine postop care Comments: Routine discharge instructions reviewed with the patient. Prescription sent to pharmacy. Dr. Fountain will evaluate the patient for discharge in a.m. Time Spent With Patient Time: Total time spent is greater than 50% in coordination of care (as documented) at patient's floor/unit and/or counseling patient: Time with patient: less than 15 minutes
[2020-07-24] MEDS: IBUPROFEN 600 MG TABLET PO (23:51)
[2020-07-25] MEDS: HYDROCODONE/ACET 5/325 TABLET 2 TAB PO ×2 (05:23→09:17)
[2020-07-25] MEDS: IBUPROFEN 600 MG TABLET PO ×2 (05:23→11:26)
[2020-07-25 08:08] VITALS: BP 124/76; PULSE 84; RESP 16; TEMP 36.3
[2020-07-25] MEDS: DOCUSATE 250 MG CAPSULE PO (09:18)
--- NOTE | 2020-07-25 09:29 | P.DS_ITS ---
Discharge Providers Provider Date of admission: 07/23/20 07:08 Discharge Date: 07/25/20 Primary care physician: HENRY Hoskins Consults: 07/23/20 07:50 Consult to Anesthesiology Urgent Comment: Consulting Provider: Anesthesiologist Reason for consultation: epidural Has provider been notified: No 07/24/20 00:14 Consult to Edge Bander Operator Routine Comment: Discharge provider: Yareli Fountain MD Summary Hospital Course Date Patient Seen: 07/25/20 Time Patient Seen: 09:30 Diagnoses: Primary section Hospital Course: This patient is a 29-year-old para 1 postop day 2 status post emergency section for intolerance of labor in the setting of induction of labor for gestational diabetes. The patient is meeting postoperative goals appropriately, ambulating, voiding, mild lochia, tolerating p.o., good pain control on p.o. pain medications, passing flatus. The patient denies any pH symptoms or other symptoms and is stable for discharge with outpatient follow-up. Her post operative course has been uncomplicated. Peripartum Data Infant Delivery Method: Emergency Section Procedures: Primary section complications: none [place] 1: Gender: Male Disposition of : home Discharge Diagnosis (1) Delivery by section: Status: Acute Status at Discharge Cognitive/behavioral status at discharge: oriented Functional status at discharge: independent ambulation Overall status at discharge: patient is progressing back to baseline Time Spent with Patient Time attestation: Total time spent providing and/or coordinating discharge services: Objective Labs Result Diagrams: 07/24/20 06:24 Exam Vital Signs (past 8 hours): 120/70, HR 85, afebrile Oxygen Delivery Method Room Air Const General: cooperative, healthy appearing and comfortable Resp Effort & Inspection: normal respiratory effort Auscultation: clear to auscultation bilaterally Cardio Rate: regular rate Rhythm: regular rhythm GI Inspection: incision (c/d/i) Palpation: soft and No tender Extrem General: normal to inspection Discharge Plan Discharge Plan Patient Disposition: Home Discharge orders & Medications Prescriptions: New ferrous sulfate 325 mg (65 mg iron) Tablet 325 mg PO DAILY Qty: 30 RF: 0 ibuprofen 600 mg Tablet 600 mg PO Q6HR PRN (Reason: Fever/Mild Pain (1-3)) Qty: 30 RF: 0 hydrocodone-acetaminophen 5-325 mg Tablet 1 tab PO Q4HR PRN (Reason: Pain, Severe (7-10)) Qty: 30 RF: 0 Continued prenat.vits,nuzhat,egx-clsh-qsbml Tablet 1 tab PO DAILY RF: 0 Discontinued (DME) blood-glucose meter [Blood Glucose Monitoring] Kit See Rx Instructions .ROUTE .MEDSUPPLY Qty: 1 RF: 0 (DME) lancets [Comfort Lancets] Misc See Rx Instructions .ROUTE .MEDSUPPLY Qty: 100 RF: 4 (DME) Blood Glucose Test Strip See Rx Instructions .ROUTE .MEDSUPPLY Qty: 100 RF: 4 Follow up/Referrals: Melia Phan MD [Physician] - (Your Aquacel removal is scheduled for July 31 @ 2:15pm. Your follow up appointment is scheduled for August, @1pm.) Casandra Sanchez ARNP [Primary Care Provider] - Diet/Activity/Treatments Diet: Regular Activity: Nothing in vagina or lifting over 20 lb for 6 weeks Skin/Wound/Dressing Care Report to your healthcare provider any signs of infection, such as:: chills, fever and increased pain Dressing: Leave dressing on until removed by MD in 1 week Discharge Data Primary Care Provider: Casandra Sanchez
== END 2020-07-25 12:15 | disposition home or self-care (01) | DRG 788 ==
PROVIDERS: Admitting Provider Specialist; PCP Registered Nurse; Referring Provider Specialist; Visit Provider Specialist
PROC: 10D00Z1 Extraction of Products of Conception, Low, Open Approach (ICD-10-PCS; CPT 59514; principal; 2020-07-23 22:00)
DX: O24.420 Gestational diabetes mellitus in childbirth, diet controlled (principal); O76 Abnormality in fetal heart rate and rhythm complicating labor and delivery; O61.0 Failed medical induction of labor; Z3A.39 39 weeks gestation of pregnancy; Z37.0 Single live birth
CPT/HCPCS: 01967; 01968; 36415; 59050; 59510; 85025; 86850; 86900; 86901; J0690; J1200; J1885; J2250; J2274; J2405; J2590

== ENCOUNTER → 2021-02-24 08:50 | Outpatient (CLI) | payer OTHER, SELFPAY | PROVIDERS: PCP Registered Nurse; Visit Provider Physician Assistant | DX: R30.9 Painful micturition, unspecified (principal) | CPT/HCPCS: 87086 ==

== ENCOUNTER → 2024-03-13 13:03 | Outpatient (CLI) | payer OTHER, SELFPAY ==
[2024-03-13 13:50] LABS: Add Manual Diff / Slide Review NO; Basophils Absolute Auto 0 /uL (0-100); Basophils Percent Auto 0.3 % (0-2); Eosinophils Absolute Auto 300 /uL (0-450); Eosinophils Percent Auto 2.6 % (2-4); Hematocrit 38.5 % (36-46); Hemoglobin 12.2 g/dL (12.0-16.0); Lymphocytes Absolute Auto 3400 /uL (1100-4500); Lymphocytes Percent Auto 29.7 % (25-40); Mean Corpuscular HGB Conc 31.6 % (30-36); Mean Corpuscular Hemoglobin 24.3 PG (26-34); Mean Corpuscular Volume 76.9 fL (80-100); Monocytes Absolute Auto 500 /uL (0-900); Monocytes Percent Auto 4.1 % (3-14); Neutrophils Absolute Auto 7300 /uL (1500-7000); Neutrophils Percent Auto 63.3 % (50-75); Platelet Count 360 X10^3/uL (150-400); Red Blood Cell Count 5.01 X10^6/uL (4.0-5.2); Red Cell Distribution Width 16.2 % (11.6-14.8); White Blood Cell Count 11.5 X10^3/uL (4.5-11.0)
[2024-03-13 14:08] LABS: Alanine Aminotransferase 37 IU/L (<35); Albumin 4.7 g/dL (3.5-5.0); Albumin Globulin Ratio 1.6 (1.0-2.8); Alkaline Phosphatase 92 U/L (38-126); Aspartate Aminotransferase 29 IU/L (14-36); BUN Creatinine Ratio 19.4 (6-22); Bilirubin Total 0.4 mg/dL (0.2-1.3); Blood Urea Nitrogen 12 mg/dL (7-17); Calcium 9.8 mg/dL (8.4-10.2); Carbon Dioxide 23 mmol/L (22-32); Chloride 104 mmol/L (98-107); Cholesterol 159 mg/dL (140-199); Estimated Glomerular Filt Rate > 60 mL/min (>60); Glucose 104 mg/dL (70-100); HDL Cholesterol 46 mg/dL (40-60); HEMOLYSIS < 15 (0-50); LDL Cholesterol Calculated 104 mg/dL (<100); Potassium 4.4 mmol/L (3.4-5.1); Sodium 139 mmol/L (137-145); Total Protein 7.7 g/dL (6.3-8.2); Triglycerides 45 mg/dL (35-150)
[2024-03-13 15:39] LABS: Creatinine Urine Random 22.87 mg/dL
[2024-03-13 15:50] LABS: Microalbumin Urine Random < 0.6 mg/dL (0-1.6)
== END ==
PROVIDERS: PCP Family Medicine; Referring Provider Family Medicine; Visit Provider Family Medicine
DX: E66.812 Obesity, class 2 (principal); E11.9 Type 2 diabetes mellitus without complications; Z68.37 Body mass index [BMI] 37.0-37.9, adult
CPT/HCPCS: 36415; 80053; 80061; 82043; 82570; 85025

== ENCOUNTER → 2024-06-10 11:51 | Outpatient (CLI) | payer OTHER, SELFPAY ==
[2024-06-10 12:54] LABS: Hemoglobin A1C% w Est Avg Glu 5.3 % (4.0-6.0)
== END ==
LOC: LAB 11:52
PROVIDERS: PCP Family Medicine; Referring Provider Family Medicine; Visit Provider Family Medicine
DX: E11.9 Type 2 diabetes mellitus without complications (principal); E66.812 Obesity, class 2; Z68.37 Body mass index [BMI] 37.0-37.9, adult
CPT/HCPCS: 36415; 83036

== ENCOUNTER → 2024-08-27 15:53 | Outpatient (CLI) | payer OTHER, SELFPAY ==
[2024-08-27 16:23] LABS: Add Manual Diff / Slide Review NO; Basophils Absolute Auto 100 /uL (0-100); Basophils Percent Auto 0.5 % (0-2); Eosinophils Absolute Auto 200 /uL (0-450); Eosinophils Percent Auto 2.2 % (2-4); Hematocrit 39.7 % (36-46); Hemoglobin 12.9 g/dL (12.0-16.0); Lymphocytes Absolute Auto 3300 /uL (1100-4500); Lymphocytes Percent Auto 31.3 % (25-40); Mean Corpuscular HGB Conc 32.5 % (30-36); Mean Corpuscular Hemoglobin 26.3 PG (26-34); Mean Corpuscular Volume 80.8 fL (80-100); Monocytes Absolute Auto 600 /uL (0-900); Monocytes Percent Auto 6.1 % (3-14); Neutrophils Absolute Auto 6300 /uL (1500-7000); Neutrophils Percent Auto 59.9 % (50-75); Platelet Count 350 X10^3/uL (150-400); Red Blood Cell Count 4.91 X10^6/uL (4.0-5.2); Red Cell Distribution Width 15.2 % (11.6-14.8); White Blood Cell Count 10.6 X10^3/uL (4.5-11.0)
[2024-08-27 16:35] LABS: Hemoglobin A1C% w Est Avg Glu 5.2 % (4.0-6.0)
== END ==
PROVIDERS: PCP Family Medicine; Referring Provider Family Medicine; Visit Provider Family Medicine
DX: E66.812 Obesity, class 2 (principal); Z68.37 Body mass index [BMI] 37.0-37.9, adult; E11.9 Type 2 diabetes mellitus without complications; D72.829 Elevated white blood cell count, unspecified; D72.828 Other elevated white blood cell count
CPT/HCPCS: 36415; 83036; 85025

== ENCOUNTER → 2025-02-17 13:32 | Outpatient (CLI) | payer OTHER, SELFPAY | PROVIDERS: PCP Family Medicine; Visit Provider Chiropractor | DX: J02.9 Acute pharyngitis, unspecified (principal) | CPT/HCPCS: 87070 ==